=== PATIENT | female | born 1980 | race Asian ===

== ENCOUNTER 2016-09-11 16:00 | Emergency (ER) | payer SELFPAY ==
[2016-09-11 16:52] VITALS: BP 112/52
--- NOTE | 2016-09-11 17:38 | EDM.PDOC ---
[id number]: 12 WKS /ABD PAIN AND BLEEDING Time Seen by Provider: 09/11/16 16:00 Source of Information: Reports: Patient, Family History Limitations: Reports: No Limitations - History of Present Illness INITIAL COMMENTS - FREE TEXT/NARRATIVE: 36-year-old female 3 para 1 who is roughly 11-1/2 weeks gestation has developed cramping and bleeding over the past 6 hours. She is fairly uncomfortable, no fever, no vomiting. Onset: Sudden (Started around 6 hours ago) Severity: Moderate Associated Symptoms: Reports: No Other Symptoms Pelvic Pain Score (Numeric/FACES): 8 - Related Data Allergies Allergy/AdvReac Type Severity Reaction Status Date / Time No Known Allergies Allergy Verified 09/11/16 16:52 Home Meds: Home Meds Vits #93/Iron Fum/FA [ Formula Tablet] 1 cap PO DAILY 09/11/16 [History] Progesterone,Micronized [Progesterone] 100 mg PO DAILY 09/11/16 [History] Past Medical History [employer] History: Reports: Spontaneous - Past Surgical History Female Surgical History: Reports: Section Social & Family History - Tobacco Use Smoking Status *Q: Never Smoker - Caffeine Use Caffeine Use: Reports: Tea - Recreational Drug Use Recreational Drug Use: No ED ROS GENERAL - Review of Systems Review Of Systems: See Below Constitutional: Denies: Fever, Chills Respiratory: Denies: Shortness of Breath Cardiovascular: Denies: Chest Pain GI/Abdominal: Reports: Abdominal Pain : Denies: Dysuria, Flank Pain Skin: Reports: No Symptoms ED EXAM - Physical Exam Exam: See Below Exam Limited By: No Limitations General Appearance: Alert, Mild Distress (Patient is fairly uncomfortable with pelvic cramping) Respiratory/Chest: No Respiratory Distress (Female) Exam: Vaginal Bleeding (Formal vaginal exam was not obtained) Neurological: Alert, Oriented Skin Exam: Warm, Dry Course - Vital Signs Last Recorded V/S: Last Vital Signs Temp 97.7 F 09/11/16 16:44 Pulse 74 09/11/16 16:44 Resp 14 09/11/16 16:44 BP 112/52 L 09/11/16 16:44 Pulse Ox 98 09/11/16 16:44 - Orders/Labs/Meds Orders: Active Orders 24 hr Category Date Time Status OB 1st Tri Sgl 1st Gest [US] Stat Exams 09/11/16 16:47 Taken Labs: Laboratory Tests 09/11/16 Range/Units 17:35 WBC 11.2 H (4.5-11.0) K/uL RBC 3.90 (3.30-5.50) M/uL Hgb 12.3 (12.0-15.0) g/dL Hct 36.4 (36.0-48.0) % MCV 93 (80-98) fL MCH 32 H (27-31) pg MCHC 34 (32-36) % Plt Count 152 (150-400) K/uL Neut % (Auto) 81 H (36-66) % Lymph % (Auto) 14 L (24-44) % Isabella % (Auto) 5 (2-6) % Eos % (Auto) 1 L (2-4) % Baso % (Auto) 0 (0-1) % Meds: Medications Discontinued Medications Generic Name Dose Route Start Last Admin Trade Name Freq PRN Reason Stop Dose Admin Ibuprofen 600 mg 09/11/16 17:46 09/11/16 17:52 Motrin PO 09/11/16 17:47 600 mg ONETIME ONE Administration - Re-Assessments/Exams Free Text/Narrative Re-Assessment/Exam: 09/11/16 17:40 First trimester ultrasound was obtained which confirmed demise at roughly 9 weeks gestation. The amniotic sac was from the placenta wall, there was no heartbeat. These findings were discussed with the patient and her , no further procedures were needed at this time but if bleeding continues for the next several days or becomes much heavier and the patient becomes symptomatic or worried they can return. A baseline hemoglobin was obtained and she was discharged with 10 hydrocodone for pain control. Hemoglobin was 12.3. Patient will return in the next 24-48 hours if any concerns. Departure - Departure Time of Disposition: 17:58 Disposition: Home, Self-Care 01 Condition: Good Clinical Impression: Incomplete - Discharge Information Instructions: Miscarriage, [id number] Referrals: PCP,None [Primary Care Provider] - Forms: ED Department Discharge Care Plan Goals: Ibuprofen or naproxen will help with pain, add stronger pain medications if needed. Increase activity as tolerated and return any time if you feel you are bleeding too heavily or pain is not controlled. - My Orders Last 24 Hours: My Active Orders 09/11/16 16:47 OB 1st Tri Sgl 1st Gest [US] Stat - Assessment/Plan Last 24 Hours: My Active Orders 09/11/16 16:47 OB 1st Tri Sgl 1st Gest [US] Stat
[2016-09-11] MEDS ORDERED: Ibuprofen 600 MG Tab PO ONE (17:46)
== END 2016-09-11 17:58 | disposition home or self-care (01) ==
LOC: JP.ED 16:00
DX: O03.4 Incomplete spontaneous abortion without complication (principal); O09.521 Supervision of elderly multigravida, first trimester; Z3A.11 11 weeks gestation of pregnancy; Z79.899 Other long term (current) drug therapy
CPT/HCPCS: 36415; 76801; 85025; 99284; A9270